=== PATIENT | female | born 1985 | race Two or more races ===

== ENCOUNTER → 2023-08-28 19:30 | Outpatient (BNV) | payer MEDICAID, SELFPAY | PROVIDERS: Visit Provider Internal Medicine | DX: R06.83 Snoring (principal) | CPT/HCPCS: 95810 ==

== ENCOUNTER → 2023-08-28 19:30 | Outpatient (REF) | payer MEDICAID, SELFPAY | LOC: HO.SL 19:30 | PROVIDERS: Visit Provider Internal Medicine | DX: G47.39 Other sleep apnea (principal); R06.83 Snoring | CPT/HCPCS: 95810 ==

== ENCOUNTER 2023-12-25 11:37 | Outpatient (REF) | payer MEDICAID, SELFPAY ==
--- NOTE | ~2023-12-25 | US_ITS ---
EXAMINATION: US PELVIS CLINICAL INFORMATION: Dysmenorrhea COMPARISON: None available. TECHNIQUE: Transabdominal pelvic ultrasound. Patient declined transvaginal exam. FINDINGS: Uterus: The uterus is anteverted and measures 10 x 8 x 8 cm. The double wall endometrial thickness is 2 mm. There are 4 hypoechoic uterine lesion seen suggestive of fibroids. These measure 2.4 x 1.5 x 1.7 cm in the upper posterior uterine body, 2 x 1.8 x 1 cm in the posterior uterine fundus, 2.5 x 3.3 x 2.7 cm in the anterior upper uterine body and 5 cm exophytic to the anterior upper uterine body. Adnexa: Both ovaries are visualized. There is no pelvic ascites or fluid collection. Right ovary measures 2.9 x 1.5 x 1.5 cm. Left ovary measures 4.9 x 1.8 x 2.5 cm. There is a 2.5 x 2 x 2 cm simple cyst. Given cyst size and patient age no imaging follow-up recommended. US/US pelvic complete IMPRESSION: Fibroid uterus.
== END 2023-12-25 11:38 | disposition home or self-care (01) ==
LOC: HO.US 11:37
PROVIDERS: PCP Internal Medicine; Visit Provider Advanced Practice Midwife
DX: N94.6 Dysmenorrhea, unspecified (principal)
CPT/HCPCS: 76856

== ENCOUNTER 2024-03-05 09:59 | Outpatient (REF) | payer MEDICAID, SELFPAY | END 2024-03-05 10:00 | disposition home or self-care (01) | LOC: HO.CHCLDS 09:59 | PROVIDERS: Visit Provider Internal Medicine | DX: Z13.89 Encounter for screening for other disorder (principal) ==

== ENCOUNTER 2024-03-05 11:19 | Outpatient (REF) | payer MEDICAID, SELFPAY ==
[2024-03-05 14:11] LABS: MANUAL DIFF FLAG NO
[2024-03-05 14:54] LABS: Basophils Percent Auto 0.6 % (0-2); Eosinophils Absolute Auto 0.1 X10*3/uL (0.0-0.4); Eosinophils Percent Auto 2.1 % (0-4); Hematocrit 38.8 % (37.0-47.0); Hemoglobin 12.1 g/dl (12.0-16.0); Imm Gran Abs Auto 0.01 X10*3/uL (0.00-0.03); Imm Gran Pct Auto 0.2 % (0.0-0.4); Lymphocytes Absolute Auto 1.9 X10*3/uL (1.2-4.9); Lymphocytes Percent Auto 38.8 % (20-40); Mean Corpuscular HGB Conc 31.2 g/dl (31.0-35.0); Mean Corpuscular Hemoglobin 22.2 pg (27.0-33.0); Mean Corpuscular Volume 71.3 fL (80.0-98.0); Mean Platelet Volume 12.7 fL (9.4-12.3); Monocytes Absolute Auto 0.5 X10*3/uL (0.1-1.2); Monocytes Percent Auto 10.9 % (2-11); Neutrophils Absolute Auto 2.3 x10*3/uL (2.0-8.3); Neutrophils Percent Auto 47.4 % (45-73); Platelet Count 186 X10*3/uL (160-400); Red Blood Count 5.44 X10*6/uL (4.20-5.50); Red Cell Distribution Width 15.9 % (11.0-16.0); White Blood Count 4.9 X10*3/uL (4.8-10.8)
[2024-03-05 15:07] LABS: Alanine Aminotransferase 11 U/L (0-31); Albumin Level 3.8 g/dL (3.5-5.0); Alkaline Phosphatase 68 U/L (39-117); Anion Gap 12 (12-20); Aspartate Amino Transferase 18 U/L (5-31); Bilirubin Total 0.5 mg/dL (0.0-1.0); Blood Urea Nitrogen 12 mg/dL (9-16); Calcium 9.7 mg/dL (8.4-10.2); Carbon Dioxide 27 mmol/L (22-29); Chloride 105 mmol/L (96-108); Cholesterol 182 mg/dL (<200); Estimated Glomerular Filt Rate > 60; Glucose Random 89 mg/dL (60-115); HDL Cholesterol 50 mg/dL (>40); LDL Cholesterol Calculated 122 mg/dL (<100); Potassium 4.7 mmol/L (3.3-5.1); Sodium 139 mmol/L (135-145); Total Protein 7.1 g/dL (6.5-8.0); Triglycerides 52 mg/dL (<150)
[2024-03-06 04:12] LABS: HIV AB/AG Nonreactive (Nonreactive); HIV Num 1 0.04 S/CO (0.00-0.99)
== END 2024-03-05 11:20 | disposition home or self-care (01) ==
LOC: HO.CHCLDS 11:19
PROVIDERS: Visit Provider Internal Medicine
DX: E66.9 Obesity, unspecified (principal); Z11.59 Encounter for screening for other viral diseases; Z11.4 Encounter for screening for human immunodeficiency virus [HIV]
CPT/HCPCS: 36415; 80053; 80061; 84443; 85025; 87389

== ENCOUNTER 2025-03-03 08:40 | Outpatient (REF) | payer MEDICAID, SELFPAY ==
--- NOTE | 2025-03-03 | EEG_ITS ---
Description: This is a routine waking EEG using the 10-20 electrode placement system. The waking background activity consists of low-voltage fast frequency seen diffusely intermixed with low-voltage posterior 10 hertz alpha frequency.? Photic stimulation is without activation.? Hyperventilation produces no change in the background activity. No focal, lateralizing or paroxysmal discharges are seen. Impression: This waking EEG is within normal limits MTDD
--- OUTSIDE RECORDS SUMMARY | 2025-03-03 08:46 | XMS_ITS | Encounter Summary ---
Author Organization [employer] Address [address] [place] [address] Care Team Providers Care Line Walker Name Role Phone Unavailable Primary Care Provider Unavailabl e Encounter Details Date Type Department Care Team (Latest Contact Info) Description 08/28/2024 Lab Requisition [facility] - Main Lab [address] [place] [address] Bhavna Peters MD [address] [address] Encounter for gynecological examination (general) (routine) without abnormal findings Social History Tobacco Use Types Packs/Day Years Used Date Smoking Tobacco: Never Assessed Comments Unknown Sex and Gender Information Value Date Recorded Sex Assigned at Not on file Legal Sex Female 8:33 PM EST Gender Identity Not on file Sexual Orientation Not on file documented as of this encounter Plan of Treatment Not on file documented as of this encounter Procedures Procedure Name Priority Date/Time Associated Diagnosis Comments CHLAMYDIA TRACHOMATIS AND NEISSERIA GONORRHOEAE BY TMA, THINPREP Routine 08/27/2024 12:00 AM EST Encounter for gynecological examination (general) (routine) without abnormal findings PAP SMEAR Routine 08/27/2024 12:00 AM EST Encounter for gynecological examination (general) (routine) without abnormal findings documented in this encounter Results * Chlamydia trachomatis and neisseria gonorrhoeae by tma, thinprep (08/27/2024 12:00 AM EST) N. gonorrhoeae, RNA Probe Negative Negative LAB MICROBIOLOGY METHOD 08/28/2024 1:29 PM EST [facility] ([facility] Chlamydia, RNA Probe Negative Negative LAB MICROBIOLOGY METHOD 08/28/2024 1:29 PM EST [facility] Brushing/Spatula Cervix uteri structure / Unknown 08/27/2024 08/28/2024 7:58 AM EST us Bhavna Peters MD LAB CYTOLOGY ORDERABLES Final Result [facility] [address] [place] [address], * Pap smear (08/27/2024 12:00 AM EST) Interpretation Negative for intraepithelial lesion or malignancy 08/29/2024 11:55 AM [facility] General Categorization Negative 08/29/2024 11:55 AM [facility] Specimen Adequacy Satisfactory for evaluation, endocervical/syed sformation zone component absent 08/29/2024 11:55 AM [facility] Pap Methodology Liquid Based Pap Test 08/29/2024 11:55 AM [facility] Disclaimer The Pap test is a screening test which carries an inherent false negative rate. These test results should be correlated with the patient's clinical findings and history. This Pap test was processed using an automated screening system. Technical cytopathology services provided by [facility], at [address] [place] [id number] (CLIA # [id number]/Carlton Pringle MD, [place].) 08/29/2024 11:55 AM [facility] Console Pap Interpretation Reported 08/29/2024 11:55 AM [facility] Brushing/Spatula Cervix uteri structure / Unknown 08/27/2024 08/28/2024 7:58 AM EST us Bhavna Peters MD LAB CYTOLOGY ORDERABLES Final Result [facility] [address] [place] [address], documented in this encounter Visit Diagnoses Diagnosis Encounter for gynecological examination (general) (routine) without abnormal findings documented in this encounter
--- OUTSIDE RECORDS SUMMARY | 2025-03-03 08:46 | XMS_ITS | Encounter Summary ---
Author Organization [employer] Address [address] [place] [address] Care Team Providers Care Supervisor Building Maintenance Name Role Phone Kulwinder Campbell MD Primary Care Prov ider Encounter Details Date Type Department Care Team (Late st Contact Info) Description 06/05/2024 Orders Only [facility] MED & PEDS [address] [place] [address] Sujatha Leyva FNP [address] [place] [address] Bacterial vaginosis Social History Tobacco Use Types Packs/Day Years Used Date Smoking Tobacco: Never Smokeless Tobacco: Never Alcohol Use Standard Drinks/Week Comments Never 0 (1 standard drink = 0.6 oz pur e alcohol) Depression Answer Date Recorded Patient Health Questionnaire-9 Score 1 08/09/2023 Patient Health Questionnaire-9 Score 1 08/09/2023 Last PHQ-9: Questionnaire Data Not on file 1 10/10/2022 Housing Stability Answer Date Recorded What is your housing situation today? I do not have housing (Staying with others, in a hotel, in a mcc, living outside on the street, on a beach, in a car, or in a park 08/17/[address] you li ve. Do you have problems with any of the following? None of the above 08/17/2023 Food Insecurity Answer Date Recorded Within the past 12 months, y ou worried that your food would run out before you got money to buy more: Sometimes True 2022 Within the past 12 months,th e food you bought just didn't last and you didn't have enough money to get more: Sometimes True 08/09/2023 Transportation Answer Date Recorded In the past 12 months, has l ack of transportation kept you from medical appts, meetings, work or from getting things needed for daily living? No 08/17/2023 Utilities Answer Date Recorded In the past 12 months, has t he electric, gas, oil or water company threatened to shut off services in your home? No 08/09/2023 Depression Answer Date Recorded Patient Health Questionnaire-2 Score 1 08/09/2023 Comments No Sex and Gender Information Value Date Recorded Sex Assigned at Female 10/06/2022 8:02 AM EST Legal Sex Female 1:43 PM EST Gender Identity Female 10/06/2022 8:02 AM EST Sexual Orientation Straight 10/06/2022 8: 02 AM EST documented as of this encounter Plan of Treatment Not on file documented as of this encounter Visit Diagnoses Diagnosis Bacterial vaginosis Unspecified vaginitis and vulvovaginitis documented in this encounter Additional Health Concerns Assessment Noted Time PHQ-9 Depression Total Score: 1 08/09/20 9:33 AM EST documented as of this encounter Care Teams Supervisor Building Maintenance Relationship Specialty Start Date End Date Kulwinder Campbell MD [address] [place] [id number] PCP - General Internal Medicine 08/17/23 documented as of this encounter
== END 2025-03-03 08:41 | disposition home or self-care (01) ==
LOC: HO.NEURO 08:40
PROVIDERS: PCP Internal Medicine; Visit Provider Registered Nurse
DX: G40.109 Localization-related (focal) (partial) symptomatic epilepsy and epileptic syndromes with simple partial seizures, not intractable, without status epilepticus (principal)
CPT/HCPCS: 95819

== ENCOUNTER → 2025-03-03 08:40 | Outpatient (BNV) | payer MEDICAID, SELFPAY | PROVIDERS: PCP Internal Medicine; Visit Provider Psychiatry & Neurology Neurology | DX: G40.109 Localization-related (focal) (partial) symptomatic epilepsy and epileptic syndromes with simple partial seizures, not intractable, without status epilepticus (principal) | CPT/HCPCS: 95816 ==

== ENCOUNTER 2025-04-01 08:32 | Outpatient (AMB) | payer MEDICAID, SELFPAY ==
--- NOTE | 2025-04-01 08:43 | A.OFFVIS_ITS ---
Intake Visit Reasons: RESULTS EEG on 03/03 Allergies No Known Allergies Allergy (Verified 03/14/25 09:50) Medication List - Last Reconciled 04/01/25 by Jose Amador MD lamotrigine 50 mg (2 x 25 mg) PO BID 90 days HPI Comments Details: She has had three episodes in last 6 weeks, last one on 03/29/25 during sleep. Her EEG was normal including when she reported a Sz. She says she had 3 seizures in one day sometime in 12/2024. She was sleeping and woke up twice with symptoms of head and mouth twitching along with shoulder shrugging. It then happened during the day, which has not happened before. At one time, her significant other told her she had seizure during sleep, but she did not wake up when it happened.?Episodes happen at night during sleep with head and mouth twitching, and shoulder shrugging. It?lasts about 5-10 minutes. She feels confused after and is tired the next day. No tongue bite or incontinence.? She had 3-4 episodes between 10/2023 - 02/2024 of waking from sleep with either left or right side of head twitching, mouth twitching, and shoulder shrugging lasting <1 minute. She felt dizzy and foggy afterwards. She had not been taking levetiracetam regularly and had missed doses prior to episodes, up to 4 days in a row. She had 4 episodes after 24hr EEG monitor was taken off. Wakes up with head twitching to left, left mouth, and left shoulder shrugs lasting <1 minute and can reoccur. Had syncopal episode following dizziness in 2018 and fell. Started having episodes in 2019 that would occur while asleep or almost asleep where she would get a funny feeling, like if she was awake, and then her head would turn to one side and shoulder would pull up. She would not respond for about 30-60 seconds. Had 2 episodes in 2022. No generalized convulsion witnesse d. Family hx of epilepsy and diabetes. COUNTS INCLUDE [facility] BEDS AT [facility] Medical History (Updated 04/01/25 @ 09:04 by Jose Amador MD) Partial seizure disorder Review of Systems Const Details: ?General/Constitutional:? Change in appetitedenies.? Chillsdenies.? Fatiguedenies.? Feverdenies.? Weight gaindenies.? Weight lossdenies. ???Sleep:? Difficulty getting to sleepdenies.? Difficulty maintaining sleepdenies?.? Urge to move legsdenies.? Teeth grindingdenies.? Shouting or Kicking during sleep denies.? Abnormal behavior during sleepadmits.? Excessive sleepdenies.? Snoring denies.? Daytime sleepinessdenies. ???Respiratory:? Shortness of breathdenies.? Chest paindenies.? Coughdenies. ???Cardiovascular:? Chest pain at restdenies.? Chest pain with exertiondenies.? Claudicationdenies .? Dizzinessdenies.? Fluid accumulation in the legsdenies.? Irregular heartbeat denies.? Palpitationsdenies. ???Gastrointestinal:? Abdominal paindenies.? Constipationdenies.? Diarrheadenies.? Difficulty swallowingdenies.? Heartburndenies.? Nauseaadmits.? Rectal bleedingdenies. ???Genitourinary:? Frequent urinationdenies.? Urgencydenies.? Incontinencedenies.? Erectile Dysfunctiondenies. ???Musculoskeletal:? Neck paindenies.? Back paindenies.? Muscle achesdenies.? Painful jointsdenies.? Sciaticadenies.? Weaknessdenies. ???Neurologic:? Difficulty swallowingdenies.? Balance difficultydenies.? Coordinationnormal.? Difficulty speakingdenies.? Dizzinessdenies.? Faintingdenies.? Gait abnormality denies.? Headacheadmits.? Loss of strengthdenies.? Loss of use of extremity denies.? Low back paindenies.? Memory lossdenies.? Seizuresdenies.? Ticsdenies.? Tingling/Numbnessdenies.? Transient loss of visiondenies.? Tremordenies. ???Psychiatric:? Anxietydenies.? Auditory/visual hallucinationsdenies.? Delusionsdenies.? Depressed mooddenies.? Stressorsdenies.? Substance abusedenies.? Suicidal thoughtsdenies. Physical Exam Neuro Other: Neurological: Abnormal neurological findings:??none.?Mental Status:??alert and oriented X 3,?Normal attention, orientation, memory and affect.?Cranial Nerves:??Pupils are equal, round and reactive to light. Fundoscopy shows normal disc bilaterally. External occular muscles are intact. Visual ramírez are full, no ptosis. Face is symmetrical, no facial weakness or droop. Facial sensations are normal. Tongue protrudes in midline. Palate elevates symmetrically. Shoulder shrugging is normal..?Motor Examination:??Normal muscle tone, bulk and strength,?No atrophy or fasciculations,?No drift of the extended upper extremities,?Deep tendon reflexes are 2+?,?Plantars are flexor?.?Straight Leg Raising:??90 degrees.?Sensory Exam:??Normal light touch, temperature, pinprick, vibration and joint-position sensations?,?Rhomberg sign is absent.?Coordination:??no ataxia,?no titubation,?kpyhly-dv-egdb, tyys-azik-jhtt test and rapid alternating movements were normal.?Gait Exam:??Within normal limits.?Cerebellar Signs:??Pwecfn-mi-tbib and lydi-ox-hekk is normal,?no dysdiadochokinesia?.?Extrapyramidal System:??No tremor, rigidity with normal facial expressions,?No bradykinesia, no bradyphrenia. Normal arm swing and posture. No propulsion or retropulsion.?Speech:??Normal,?no dysphasia or dysarthria..? Mini Mental Status Exam: Level of Consciousness:??Alert.?Orientation:??Knows correct year, month, date, day and season,?Knows correct city, county and state. Knows correct location and floor.?Registration:??Able to register 3 objects.?Attention:??Serial 7's performed accurately.?Recall:??Able to recall 3 out of 3 objects.?Language:??Normal spontaneous speech, fluency, repetition,naming, comprehension, reading and writing.?Total Score:??30/30.? General Examination: GENERAL APPEARANCE:??normal,?in no acute distress.?HEART:??S1, S2 normal,?no murmurs.?LUNGS:??clear anteriorly and posteriorly. ?MUSCULOSKELETAL:??normal.?EXTREMITIES:??no edema.?PSYCH:??alert, oriented,?cognitive function intact,?cooperative with exam.? Results Reviewed Results Reviewed: This waking EEG is within normal limits Assessment & Plan Assessment & Plan (1) Partial seizure disorder: Code(s): G40.109 - Localization-related (focal) (partial) symptomatic epilepsy and epileptic syndromes with simple partial seizures, not intractable, without status epilepticus Category: Medical (2) Non-epileptic convulsion: Code(s): R56.9 - Unspecified convulsions Category: Medical Plan Increase Lamotrigine to 75mg bid. Possible pseudoseizures: Add Clonazepam 0.5mg hs Medications: New clonazepam (Klonopin) administer 30 minutes before bedtime 0.5 mg PO BEDTIME 30 tabs 2RF Pseudoseizures MDD 1mg Changed From lamotrigine 50 mg (2 x 25 mg) PO BID 90 days 360 tabs 1RF To lamotrigine 75 mg (3 x 25 mg) PO BID 540 tabs 1RF 90 days Coding Level of Care Code Est Pt Level 4 (54475) Diagnoses Partial seizure disorder G40.109 Non-epileptic convulsion R56.9
--- OUTSIDE RECORDS SUMMARY | 2025-04-01 08:48 | XMS_ITS | Encounter Summary ---
Author Organization [employer] Address [address] [place] [address] Care Team Providers Care Tube Tester Name Role Phone Kulwinder Campbell MD Primary Care Prov ider Encounter Details Date Type Department Care Team (Late st Contact Info) Description 06/05/2024 Orders Only [facility] MED & PEDS [address] [place] [address] Sujatha Leyva FNP [address] [place] [address] Bacterial vaginosis Social History Tobacco Use Types [...] with others, in a hotel, in a skilled nursing, living outside on the street, on a [...] documented as of this encounter Care Teams Tube Tester Relationship Specialty Start Date End Date Kulwinder Campbell MD [address] [place] [id number] PCP - General Internal Medicine 08/17/23 documented as of this encounter
--- OUTSIDE RECORDS SUMMARY | 2025-04-01 08:48 | XMS_ITS | Encounter Summary ---
Author Organization [employer] Address [address] [place] [address] Care Team Providers Care Boiler Fitter Name Role Phone Unavailable Primary Care Provider Unavailabl e Encounter Details Date Type Department Care Team (Latest Contact Info) Description 08/28/[address] [facility] - Main Lab [address] [place] [address] Bhavna Peters MD [address] [address] Encounter for gynecological examination (general) [...] LAB MICROBIOLOGY METHOD 08/28/2024 1:29 PM EST [facility] Chlamydia, RNA Probe Negative Negative LAB MICROBIOLOGY METHOD 08/28/2024 1:29 PM EST [facility] Brushing/Spatula Cervix uteri structure / Unknown 08/27/2024 08/28/2024 7:58 AM EST us Bhavna Peters MD LAB CYTOLOGY ORDERABLES Final Result [facility] [address] [place] [address], * Pap smear (08/27/2024 12:00 AM EST) Interpretation Negative for intraepithelial lesion or malignancy 08/29/2024 11:55 AM [facility] General Categorization Negative 08/29/2024 11:55 AM [facility] Specimen Adequacy Satisfactory for evaluation, endocervical/syed sformation zone component absent 08/29/2024 11:55 AM [facility] Pap Methodology Liquid Based Pap Test 08/29/2024 11:55 AM [facility] Disclaimer The Pap test is a screening test which carries an inherent false negative rate. These test results should be correlated with the patient's clinical findings and history. This Pap test was processed using an automated screening system. Technical cytopathology services provided by [facility], at [address] [place] [id number] (CLIA # [id number]/Carlton Pringle MD, Program Lead.) 08/29/2024 11:55 AM [facility] Console Pap Interpretation Reported 08/29/2024 11:55 AM [facility] Brushing/Spatula Cervix uteri structure / Unknown 08/27/2024 08/28/2024 7:58 AM EST us Bhavna Peters MD LAB CYTOLOGY ORDERABLES Final Result [facility]) [facility] [address] [place] [address], documented in this encounter Visit Diagnoses Diagnosis Encounter for gynecological examination (general) (routine) without abnormal findings documented in this encounter
== END 2025-04-01 09:18 | disposition home or self-care (01) ==
LOC: HO.HSM 08:33
PROVIDERS: PCP Internal Medicine; Visit Provider Psychiatry & Neurology Neurology
DX: G40.109 Localization-related (focal) (partial) symptomatic epilepsy and epileptic syndromes with simple partial seizures, not intractable, without status epilepticus (principal); R56.9 Unspecified convulsions
CPT/HCPCS: 99214

== ENCOUNTER → 2025-04-01 08:32 | Outpatient (BNVA) | payer MEDICAID, SELFPAY | PROVIDERS: PCP Internal Medicine; Visit Provider Psychiatry & Neurology Neurology | DX: G40.109 Localization-related (focal) (partial) symptomatic epilepsy and epileptic syndromes with simple partial seizures, not intractable, without status epilepticus (principal) | CPT/HCPCS: 99212 ==

== ENCOUNTER 2025-06-30 10:42 | Outpatient (AMB) | payer MEDICAID, SELFPAY ==
--- NOTE | 2025-06-30 11:09 | A.OFFVIS_ITS ---
Intake Visit Reasons: 3m/ sz Allergies No Known Allergies Allergy (Verified 06/30/25 11:28) Medication List - Last Reconciled 06/30/25 by Candice Ruiz CNP clonazepam (Klonopin) 0.5 mg PO BEDTIME MDD 1mg lamotrigine 75 mg (3 x 25 mg) PO BID 90 days HPI Comments Details: She was doing okay. She was taking lamotrigine 75mg twice a day and clonazepam as needed at bedtime, no medication side effects. She may miss dose of levetiracetam on rare occasion. No further episodes. Sleep was okay. She has had three episodes in 6 week period in summer 2024, last one on 03/29/25 during sleep. Her EEG was normal including when she reported a seizure. She says she had 3 seizures in one day sometime in 12/2024. She was sleeping and woke up twice with symptoms of head and mouth twitching along with shoulder shrugging. It then happened during the day, which has not happened before. At one time, her significant other told her she had seizure during sleep, but she did not wake up when it happened.?Episodes happen at night during sleep with head and mouth twitching, and shoulder shrugging. It?lasts about 5-10 minutes. She feels confused after and is tired the next day. No tongue bite or incontinence.? She had 3-4 episodes between 10/2023 - 02/2024 of waking from sleep with either left or right side of head twitching, mouth twitching, and shoulder shrugging lasting <1 minute. She felt dizzy and foggy afterwards. She had not been taking levetiracetam regularly and had missed doses prior to episodes, up to 4 days in a row. She had 4 episodes after 24hr EEG monitor was taken off. Wakes up with head twitching to left, left mouth, and left shoulder shrugs lasting <1 minute and can reoccur. Had syncopal episode following dizziness in 2018 and fell. Started having episodes in 2019 that would occur while asleep or almost asleep where she would get a funny feeling, like if she was awake, and then her head would turn to one side and shoulder would pull up. She would not respond for about 30-60 seconds. Had 2 episodes in 2022. No generalized convulsion witnessed. Family hx of epilepsy and diabetes. [facility] Medical History (Updated 06/30/25 @ 11:11 by Candice Ruiz CNP) Partial seizure disorder Review of Systems Const Denies chills, Denies daytime sleepiness, Denies difficulty sleeping, Denies fatigue, Denies fever(s), Denies frequent falls, Denies headache(s), Denies increased appetite, Denies poor appetite, Denies snoring, Denies weakness, Denies weight gain and Denies weight loss Eyes Denies loss of vision ENT Denies vertigo, Denies dizziness, Denies headache(s) and Denies neck pain Card Denies chest pain at rest, Denies chest pain with activity, Denies syncope, Denies leg edema, Denies palpitations, Denies dyspnea and Denies dyspnea on exertion Resp Denies cough, Denies dyspnea, Denies dyspnea on exertion and Denies snoring GI Denies abdominal pain, Denies constipation, Denies heartburn, Denies diarrhea and Reports nausea Denies urinary frequency, Denies urinary incontinence and Denies urinary urgency Musc Denies abnormal gait, Denies back pain, Denies myalgias, Denies arthralgias, Denies neck pain, Denies numbness and Denies tingling Neuro Denies abnormal gait, Denies vertigo, Denies dizziness, Denies syncope, Denies frequent falls, Denies headache(s), Denies lack of coordination, Denies loss of vision, Denies memory loss, Denies numbness, Denies Other visual disturbances, Denies restless legs, Denies seizure-like activity, Denies tingling, Denies paresthesias, Denies tremor(s) and Denies weakness Psych Denies anxiety, Denies depression, Denies auditory hallucinations, Denies memory loss and Denies visual hallucinations Endo Denies fatigue and Denies palpitations Physical Exam Const Other: General Appearance:? normal, in no acute distress. Heart:? S1, S2 normal, no murmurs. Lungs:? clear anteriorly and posteriorly. Musculoskeletal:? normal. Extremities:? no edema. Psych:? alert, oriented, cognitive function intact, cooperative with exam. Neuro Other: Abnormal Neurological Findings:?none.? Mental Status: alert and oriented X 3. Normal attention, orientation, memory, and affect. Cranial Nerves: Pupils are equal, round, and reactive to light. External ocular muscles are intact. Visual ramírez are full, no ptosis. Face is symmetrical, no facial weakness or droop. Facial sensations are normal. Tongue protrudes in midline. Palate elevates symmetrically. Shoulder shrugging is normal Motor Examination: Normal muscle tone, bulk and strength. No atrophy or fasciculations. No drift of the extended upper extremities. DTR 2+. Plantars are flexor. Sensory Exam: Normal light touch, temperature, pinprick, vibration, and joint- position sensations. Rhomberg sign is absent. Coordination: No ataxia. No titubation. Gait Exam: Within normal limits. Cerebellar Signs: Tkqsmv-xn-rteq is okay. Extrapyramidal System: No tremor, rigidity with normal facial expressions. No bradykinesia. No bradyphrenia. Normal arm swing and posture. No propulsion or retropulsion. Speech: Normal. Results Reviewed Results Reviewed: This waking EEG is within normal limits Assessment & Plan Assessment & Plan (1) Partial seizure disorder: Code(s): G40.109 - Localization-related (focal) (partial) symptomatic epilepsy and e pileptic syndromes with simple partial seizures, not intractable, without status epilepticus Category: Medical Plan: Continue lamotrigine 25mg 3 tablets twice a day. She was educated on the importance of medication compliance and risk associated with missed dose, including seizure. (2) Non-epileptic convulsion: Code(s): R56.9 - Unspecified convulsions Category: Medical Qualifiers: Convulsion type: unspecified Qualified Code(s): R56.9 - Unspecified convulsions Plan: Continue clonazepam 0.5mg 1 tablet at bedtime #30 for 30 days. Medications: Changed 2 From clonazepam (Klonopin) administer 30 minutes before bedtime 0.5 mg PO BEDTIME 30 tabs 2RF Pseudoseizures MDD 1mg To clonazepam (Klonopin) 0.5 mg PO BEDTIME 30 tabs 2RF Pseudoseizures 30 days Refilled lamotrigine 75 mg (3 x 25 mg) PO BID 540 tabs 1RF 90 days Coding Level of Care Code Est Pt Level 4 (68758) Diagnoses Partial seizure disorder G40.109 Convulsions, unspecified convulsion type R56.9 Convulsion type: unspecified
--- OUTSIDE RECORDS SUMMARY | 2025-06-30 12:48 | XMS_ITS | Clinical Summary ---
Author Organization [facility] Address [address] [place] [phone] Phone Care Team Providers Care Folder Machine Adjuster Name Role Phone Unavailable Primary Care Provider Unavailabl e Social History Tobacco Use Types Packs/Day Years Used Date Smoking Tobacco: Never Assessed Comments Unknown Sex and Gender Information Value Date Recorded Sex Assigned at Not on file Legal Sex Female 8:33 PM EST Gender Identity Not on file Sexual Orientation Not on file Plan of Treatment Health Maintenance Due Date Last Done Comments Breast Cancer Screening 1985 DTaP,Tdap,and Td Vaccines (1 - Tdap) 2004 Hepatitis B Vaccines (1 of 3 - 19+ 3-dose series) 2004 HPV Vaccines (1 - 3-dose SCD M series) 2012 HIV Screening 09/15/2023 Hepatitis C Screening 09/15/2023 Social Influencers of Health Screening 09/15/2023 Depression Screening 08/21/2024 COVID-19 Vaccine (1 - 2023-2 5 season) 2025 Influenza Vaccine (#1) 2025 Cervical Cancer Screening: P ap Smear 08/27/2027 08/27/2024 RSV Immunization Adult Patie nts (1 - 1-dose 75+ series) 2060 HIB Vaccines Aged Out No longer eligi ble based on patient's age to complete this topic Hepatitis A Vaccines Aged Out No long er eligible based on patient's age to complete this topic IPV Vaccines Aged Out No longer eligi ble based on patient's age to complete this topic MMR Vaccines Aged Out No longer eligi ble based on patient's age to complete this topic Meningococcal ACWY Vaccine Aged Out N o longer eligible based on patient's age to complete this topic Meningococcal B Vaccine Aged Out No l onger eligible based on patient's age to complete this topic Pneumococcal Vaccine: Pediat rics (0 to 5 Years) and At-Risk Patients (6 to 49 Years) Aged Out No longer eligi ble based on patient's age to complete this topic RSV Immunization Patients Un carmita 20 months Aged Out No longer eligible b ased on patient's age to complete this topic Varicella Vaccines Aged Out No longer eligible based on patient's age to complete this topic Procedures Procedure Name Priority Date/Time Associated Diagnosis Comments PAP SMEAR Routine 08/27/2024 12:00 AM EST Encounter for gynecological examination (general) (routine) without abnormal findings from Last 3 Months or Most Recently Relevant to Health Maintenance Results * Pap smear (08/27/2024 12:00 AM EST) Interpretation Negative for intraepithelial lesion or malignancy 08/29/2024 11:55 AM [facility] General Categorization Negative 08/29/2024 11:55 AM [facility] Specimen Adequacy Satisfactory for evaluation, endocervical/syed sformation zone component absent 08/29/2024 11:55 AM [facility] Pap Methodology Liquid Based Pap Test 08/29/2024 11:55 AM [facility] Disclaimer The Pap test is a screening test which carries an inherent false negative rate. These test results should be correlated with the patient's clinical findings and history. This Pap test was processed using an automated screening system. Technical cytopathology services provided by [facility], at [address] [place] [phone] (CLIA # [id number]/Carlton Pringle MD, Mixer Helper.) 08/29/2024 11:55 AM [facility] Console Pap Interpretation Reported 08/29/2024 11:55 AM [facility] Brushing/Spatula Cervix uteri structure / Unknown 08/27/2024 08/28/2024 7:58 AM EST Bhavna Peters MD LAB CYTOLOGY ORDERABLES Final Result [facility] [address] [place] [address], from Last 3 Months or Most Recently Relevant to Health Maintenance Insurance MEDICAID - [place]
--- OUTSIDE RECORDS SUMMARY | 2025-06-30 12:48 | XMS_ITS | Encounter Summary ---
Author Organization [employer] Address [address] [facility] [place] [address] Care Team Providers Care Charge Account Authorizer Name Role Phone Kulwinder Campbell MD Primary Care Prov ider Reason for Visit * Reason Onset Date Comments rs missed appt 10/04/2024 Encounter Details Date Type Department Care Team (Late st Contact Info) Description 10/04/2024 Telephone [facility] ADULT D[facility]AL [address] [place] [address] Bisi Gonzalez rs missed appt Social History Tobacco Use Types Packs/Day Years [...] with others, in a hotel, in a intermediate, living outside on the street, on a [...] AM EST documented as of this encounter Miscellaneous Notes * Telephone Encounter - Jud Santos - 10/04/2024 8:28 AM EST Patient states she called in at 7:30 and spoke to someone in answering service who was unable to help her due to language barrier. She reports she is sick with the flu. Explained to patient there is a waiting period after missed appt sand office will call back to rs after waiting period. Patient understood DR documented in this encounter Plan of Treatment Not on file documented as of this encounter Visit Diagnoses Not on filedocumented in this encounter Additional Health Concerns Assessment Noted Time PHQ-9 Depression Total Score: 1 08/09/20 9:33 AM EST documented as of this encounter Care Teams Charge Account Authorizer Relationship Specialty Start Date End Date Kulwinder Campbell MD [address] [place] [phone] PCP - General Internal Medicine 08/17/23 documented as of this encounter
--- OUTSIDE RECORDS SUMMARY | 2025-06-30 12:48 | XMS_ITS | Encounter Summary ---
Author Organization [employer] Address [address] [facility] [address] [place] [address] Care Team Providers Care Supervisor Incising Name Role Phone Kulwinder Campbell MD Primary Care Prov ider Encounter Details Date Type Department Care Team (Late st Contact Info) Description 06/05/2024 Orders Only [facility] MED & PEDS [address] [place] [address] Sujatha Leyva FNP [address] [place] [address] Bacterial vaginosis Social History Tobacco Use Types [...] with others, in a hotel, in a detention, living outside on the street, on a [...] as of this encounter Care Teams Supervisor Incising Relationship Specialty Start Date End Date Kulwinder Campbell MD [address] [place] [phone] PCP - General Internal Medicine 08/17/23 documented as of this encounter
--- OUTSIDE RECORDS SUMMARY | 2025-06-30 12:48 | XMS_ITS | Encounter Summary ---
Author Organization [employer] Address [address] [facility] [address] [place] [address] Care Team Providers Care Animal Technician Name Role Phone Kulwinder Campbell MD Primary Care Prov ider Encounter Details Date Type Department Care Team (Late st Contact Info) Description 11/08/2024 Orders Only [facility] [address] [place], [place] [phone] Shahid Bhagat MD [address] [place], [place] [phone] Social History Tobacco Use Types Packs/Day Years [...] documented as of this encounter Care Teams Animal Technician Relationship Specialty Start Date End Date Kulwinder Campbell MD [address] [place] [phone] PCP - General Internal Medicine 08/17/23 documented as of this encounter
--- OUTSIDE RECORDS SUMMARY | 2025-06-30 12:48 | XMS_ITS | Encounter Summary ---
Author Organization [employer] Address [address] [facility] [address] [place] [address] Care Team Providers Care Pneumatic Tester Name Role Phone Kulwinder Campbell MD Primary Care Prov ider Encounter Details Date Type Department Care Team (Late st Contact Info) Description 12/18/2024 Orders Only [facility] MED & PEDS [address] [place], [place] [phone] Shelly Garcia Social History Tobacco Use Types Packs/Day Years [...] with others, in a hotel, in a longterm, living outside on the street, on a [...] Procedure Name Priority Date/Time Associated Diagnosis Comments HM PAP/HPV Routine 08/27/2024 12:00 AM EST documented in this encounter Results * HM PAP/HPV (08/27/2024 12:00 AM EST) us Historical Provider HEALTH MAINTENANCE Final Result documented in this encounter Visit Diagnoses Not on filedocumented in this encounter Additional Health Concerns Assessment Noted Time PHQ-9 Depression Total Score: 1 08/09/20 9:33 AM EST documented as of this encounter Care Teams Pneumatic Tester Relationship Specialty Start Date End Date Kulwinder Campbell MD [address] [place] [phone] PCP - General Internal Medicine 08/17/23 documented as of this encounter
--- OUTSIDE RECORDS SUMMARY | 2025-06-30 12:48 | XMS_ITS | Encounter Summary ---
Author Organization [facility] Address [address] [place] [address] Care Team Providers Care Hookman Name Role Phone Unavailable Primary Care Provider Unavailabl e Encounter Details Date Type Department Care Team (Latest Contact Info) Description 08/28/2024 Lab Requisition [facility] - Main Lab [address] [place] [address] Bhavna Peters MD [address] [phone] Encounter for gynecological examination (general) [...] LAB MICROBIOLOGY METHOD 08/28/2024 1:29 PM EST [facility] Chlamydia, RNA Probe Negative Negative LAB MICROBIOLOGY METHOD 08/28/2024 1:29 PM EST [facility] Brushing/Spatula Cervix uteri structure / Unknown 08/27/2024 08/28/2024 7:58 AM EST us Bhavna Peters MD LAB CYTOLOGY ORDERABLES Final Result [facility] [address] [place] [address], * Pap smear (08/27/2024 12:00 AM EST) [...] screening system. Technical cytopathology services provided by [facility], at [address] [place] [phone] (CLIA # [id number]/Carlton Pringle MD, Jewelry Sales Representative.) 08/29/2024 11:55 AM [facility] Console Pap Interpretation Reported 08/29/2024 11:55 AM [facility] Brushing/Spatula Cervix uteri structure / Unknown 08/27/2024 08/28/2024 7:58 AM EST us Bhavna Peters MD LAB CYTOLOGY ORDERABLES Final Result [facility] [address] [place] [address], documented in this encounter Visit Diagnoses Diagnosis Encounter for gynecological examination (general) (routine) without abnormal findings documented in this encounter
--- OUTSIDE RECORDS SUMMARY | 2025-06-30 12:48 | XMS_ITS | Clinical Summary ---
Author Organization [employer] Address [address] [facility] 7t [place] [address] Care Team Providers Care Drop Wire Operator Name Role Phone Kulwinder Campbell MD Primary Care Prov ider Allergies No known active allergies Medications Multiple Vitamin (multivitamin) capsule Take 1 capsule by mouth in the morning. Active levETIRAcetam XR (Keppra XR) 500 MG 24 hr tablet Take 500 mg by mouth Once per day. Do not crush, chew, or split. Active medroxyPROGESTE Sandip (Depo-Provera) 150 MG/ML injection Inject 150 mg into the muscle every 3 (three) months. Active acetaminophen (Tylenol) 500 MG tablet Take 2 tablets (1,000 mg) by mouth every 6 (six) hours if needed for moderate pain or fever for up to 25 doses. 50 tablet 11/08/2024 Active ibuprofen 400 MG tablet Take 1 tablet (400 mg) by mouth every 6 (six) hours if needed for moderate pain or fever for up to 30 doses. 30 tablet 11/08/2024 Active Active Problems Problem Noted Date Diagnosed Date Loud snoring 08/09/2023 Assessment & Plan (08/09/2023 10:12 AM EST): Patient with loud snoring, unrefreshed sleep, gasping for air at night, obesity, will send test for sleep apnea Screening for cervical cancer 08/09/2023 Assessment & Plan (08/09/2023 10:12 AM EST): Will refer for screening cervical cancer Abnormal head movements 08/09/2023 Assessment & Plan (04/11/2024 9:19 PM EDT): Followed by neurology, she is on keppra, no further episode of seizure, continue current treatment Assessment & Plan (08/09/2023 10:16 AM EST): Patient refers about 4 years ago she had a episode of syncope where she was evalauted at er. She has then developed episodes of eye twitching, deviated nasolabial folds, and head movement that occurs mostly at night, she then has slow mentation that last a couple of hours. Will refer to neurology for evaluation Family History Medical History Relation Name Comments No Known Problems Father Cervical cancer Maternal Grandmother Osteoarthritis Mother Seizures Mother htn Mother Asthma Sister 1 Leomarys Asthma Sister 2 Andyliz Relation Name Status Comments Father Maternal Grandmother Mother Sister 1 Leomarys Sister 2 Andyliz Social History Tobacco Use Types Packs/Day Years Used Date Smoking Tobacco: Never Smokeless Tobacco: Never Tobacco Cessation:Counseling Given: Not Answered Alcohol Use Standard Drinks/Week Comments Never 0 [...] with others, in a hotel, in a fpc, living outside on the street, on a [...] Orientation Straight 10/06/2022 8: 02 AM EST Last Filed Vital Signs Vital Sign Reading Time Taken Comments Blood Pressure 135/83 11/08/2024 9:42 AM EDT Pulse 108 11/08/2024 9:42 AM EDT Temperature 36.8 C (98.2 F) 11/08/2024 9:42 AM EDT Respiratory Rate 18 11/08/2024 9:42 AM EDT Oxygen Saturation 98% 11/08/2024 9:42 AM EDT Inhaled Oxygen Concentration - - Weight 121 kg (267 lb) 11/08/2024 9:42 AM EDT Height 177 cm (5' 9.69 ) 02/28/2024 3:42 PM EDT Body Mass Index 38.66 02/28/2024 3:42 PM EDT Plan of Treatment Health Maintenance Due Date Last Done Comments Dental Oral Exam 1985 Disability Screening 1985 Alcohol/Substance Use Screening 1997 Family Planning (PISQ) 2000 HPV Vaccines (1 - 3-dose series) 2000 DTaP/Tdap/Td Vaccines (1 - Tdap) 2004 Hepatitis B Vaccines (1 of 3 - 19+ 3-dose series) 2004 Dental Prophylaxis 07/01/2024 12/29/2023 Depression Screening 08/09/2024 08/09/2023, 08/09/2023 SDOH Screening 08/17/2024 08/17/2023 Dental X-Ray: Bitewings 12/29/2024 12/29/2023 Mammogram 2025 COVID-19 Vaccine (1 - 2023-2 5 season) 2025 Influenza Vaccine (#1) 2025 Tobacco Screening 11/08/2025 11/08/2024 Dental X-Ray: Full Mouth 12/29/2026 12/29/2023 Cervical Cancer Screening 08/27/2029 HPV/Cotest 08/27/2029 12/12/2023 Pap Smear 08/27/2029 08/27/2024, 12/12/2023 Zoster Vaccines (1 of 2) 2035 RSV Patients and Patients Aged 60 years or older (1 - 1-dose 75+ series) 2060 HIV Screening Completed 03/05/2024 Hepatitis C Screening Completed 03/13/2024 HIB Vaccines Aged Out No longer eligi [...] patient's age to complete this topic Meningococcal Vaccine Aged Out No mariana iris eligible based on patient's age to complete this topic Pneumococcal Vaccine: Pediatrics (0 to 5 Years) and At-Risk Patients (6 to 49) Years Aged Out No longer eligible b ased on patient's age to complete this topic RSV under 20 months Aged Out No longe r eligible based on patient's age to complete this topic Rotavirus Vaccines Aged Out No longer eligible based on patient's age to complete this topic Procedures Procedure Name Priority Date/Time Associated Diagnosis Comments HM PAP/HPV Routine 08/27/2024 12:00 AM EST HEPATITIS C AB W/REFL TO HCV RNA, QN, PCR Routine 03/13/2024 11:32 AM EDT Encounter for hepatitis C screening test for low risk patient HIV 1/2 ANTIGEN/ANTIBODY, FOURTH GENERATION W/RFL Routine 03/05/2024 10:04 AM EDT Encounter for screening for HIV PROPHYLAXIS - ADULT Routine 12/29/2023 1 :00 PM EDT INTRAORAL - COMPLETE SERIES OF RADIOGRAPHIC IMAGES Routine 12/29/2023 1:00 PM EDT HPV MRNA E6/E7 REFLEX TO HPV 16, 18/45 Routine 12/12/2023 1:12 PM EDT Eye exam, routine from Last 3 Months or Most Recently Relevant to Health Maintenance Results * HM PAP/HPV (08/27/2024 12:00 AM EST) Rico Connor MD HEALTH MAINTENANCE Final Result * Hepatitis C Antibody with Reflex to HCV, RNA, Quantitative, Real-Time PCR (03/13/2024 11:32 AM EDT) Hepatitis C Antibody Nonreactive Nonreactive [facility] Comment:Antibodies to HCV no t detected; does not exclude early acuteHCV infection. Blood Venous blood specimen / Unknown 03/13/2024 11:32 AM EDT 03/13/2024 2:45 PM EDT Result [facility] Kulwinder Nuno MD LAB BLOOD ORDERABL ES Final Result [facility] [address] [place] [phone] * HIV-1/2 Antigen and Antibodies, Fourth Generation, with Reflexes (03/05/2024 10:04 AM EDT) HIV AB/AG Nonreactive Nonreactive [facility] Comment:HIV-1 p24 Ag and/or HIV-1/HIV-2 Ab not detected.A test result that is nonreactive does not exclude thepossibility of exposure to or infection with HIV-1 and/orHIV-2. Nonreactive results in this assay for individualswith prior exposure to HIV-1 and/or HIV-2 may be due toantigen and antibody levels that are below the limit ofdetection of this assay.The [employer] (Closed)niTheravasc HIV Ag/Ab Combo assay result andsupplemental assay results should be interpreted inconjunction with the patient's clinical presentation,history and other laboratory results. If the results areinconsistent with clinical evidence, additional testing issuggested to confirm the result. Blood Venous blood specimen / Unknown 03/05/2024 10:04 AM EDT 03/05/2024 2:07 PM EDT Kulwinder Nuno MD LAB BLOOD ORDERABL ES Final Result Performing Organization Address [facility]/ZIP Co de Phone Number [facility] [address] [place] [address] [phone] * HPV mRNA E6/E7 w/Reflex to HPV Genotypes 16, 18/45 (12/12/2023 1:12 PM EDT) HPV nRNA E6/E7 Not Detected Not Detected [facility] Comment:Methodology: Transcr iption-Mediated AmplificationThis assay detects E6/E7 viral messenger RNA (mRNA) from 14high-risk HPV types (16,18,31,33,35,39,45,51,52,56,58,59,66,68).Cervical sources are required for HPV testing.If a vaginal source from a patient who has had atotal hysterectomy with removal of cervix wassubmitted, please contact the testing laboratoryfor alternative testing options.For additional information, please refer [email or web address].Kidzillions/faq/WHI129v2(This link if provided for information/educational purposes only.)THIS TEST WAS PERFORMED AT:[facility] [place] [phone] HORNE MD HPV mRNA E6/E7 [facility] HPV 16 RNA [facility] HPV 18/45 RNA [facility] 12/12/2023 1:12 PM EDT 12/13/2023 1:00 PM EDT Joy [facility] LAB CYTOLOGY ORDERABLES F inal Result Performing Organization Address [facility]/ZIP Co de Phone Number [facility] [address] [place] [address] [phone] from Last 3 Months or Most Recently Relevant to Health Maintenance Insurance [facility] [address] [place] [id number] DENTAL-[facility] MEDICAID STAND ADULT Care Teams Drop Wire Operator Relationship Specialty Start Date End Date Kulwinder Campbell MD [address] [place] [address] TROY Browne [phone] PCP - General Internal Medicine 08/17/23
== END 2025-06-30 11:34 | disposition home or self-care (01) ==
LOC: HO.HSM 10:42
PROVIDERS: PCP Internal Medicine; Visit Provider Registered Nurse
DX: G40.109 Localization-related (focal) (partial) symptomatic epilepsy and epileptic syndromes with simple partial seizures, not intractable, without status epilepticus (principal); R56.9 Unspecified convulsions
CPT/HCPCS: 99214

== ENCOUNTER → 2025-06-30 10:42 | Outpatient (BNVA) | payer MEDICAID, SELFPAY | PROVIDERS: PCP Internal Medicine; Visit Provider Registered Nurse | DX: G40.109 Localization-related (focal) (partial) symptomatic epilepsy and epileptic syndromes with simple partial seizures, not intractable, without status epilepticus (principal) | CPT/HCPCS: 99212 ==